=== PATIENT | male | born 1955 ===

== ENCOUNTER 2017-05-07 09:38 | Emergency (ER) | payer BC, OTHER ==
[2017-05-07] MEDS ORDERED: Sodium Chloride 0.9% 1,000 ML IV ONE (09:40)
[2017-05-07] MEDS ORDERED: Sodium Chloride 0.9% 10 ML Syringe FLUSH PRN (09:40)
[2017-05-07] MEDS ORDERED: Sodium Chloride 0.9% 2.5 ML Syringe FLUSH PRN (09:40)
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
[2017-05-07 10:05] LABS: CHLORIDE,CL 107 mmol/L (98-110); SODIUM,NA 142 mmol/L (136-146)
[2017-05-07] MEDS ORDERED: Diphtheria,Pertussis(Acell),Tetanus Vaccine 0.5 ML Syringe IM ONE (10:18)
[2017-05-07] MEDS ORDERED: Diphtheria,Pertussis(Acell),Tetanus Vaccine 0.5 ML Syringe ONE (10:20)
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
[2017-05-07] MEDS ORDERED: Iopamidol 755 MG/ML 500 ML Multipack Bottle IVPUSH STA (10:38)
[2017-05-07] MEDS ORDERED: Lactated Ringers 1,000 ML IV SCH (19:00)
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
--- NOTE | 2017-05-08 14:32 | CT ---
EXAM DATE: 05/07/17 PATIENT'S AGE: 62 Patient: MALIHA CARLTON Facility: [place], [place] Site . Site : 1955 Study: CT Spine Lumbar [id number]/12/2017 11:00:39 AM Ordering Physician: Fanta Dyson Final Report: Technique: Noncontrast images lumbar spine with axial, coronal and sagittal 2D reformats. Findings: No fracture or malalignment. Mild degenerative disc disease L4-5 and moderate at L5-S1. Endplate sclerosis and cysts L5-S1. Moderate bilateral neural foraminal bony encroachment from osteophytes. Central canal and neural foramina otherwise appear free bony encroachment. Sacroiliac joints appear normal. Impression: No acute lumbar spine findings. Please note that all CT scans at this facility use dose modulation, iterative reconstruction, and/or weight-based dosing when appropriate to reduce radiation dose to as low as reasonably achievable. Dictated by Marcos Vega MD @ May 07 2017 11:10AM (Electronic Signature) Report Signed by Proxy. [facility]
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
== END 2017-05-07 11:00 ==
LOC: MW.ED 09:38
DX: G83.14 Monoplegia of lower limb affecting left nondominant side (principal); G83.24 Monoplegia of upper limb affecting left nondominant side; G83.11 Monoplegia of lower limb affecting right dominant side; G83.21 Monoplegia of upper limb affecting right dominant side; Z23 Encounter for immunization; S00.12XA Contusion of left eyelid and periocular area, initial encounter; T14.8XXA Other injury of unspecified body region, initial encounter; V59.49XA Driver of pick-up truck or van injured in collision with other motor vehicles in traffic accident, initial encounter; I10 Essential (primary) hypertension
CPT/HCPCS: 36415; 51702; 70450; 71260; 72125; 72128; 72131; 74177; 80053; 80305; 81001; 83690; 84484; 85025; 85610; 90471; 93005; 96360; 99291; 99292; G0390; G0480; Q9967